=== PATIENT | female | born 1950 | race Caucasian/White ===

== ENCOUNTER 2017-03-20 11:24 | Emergency (ER) | payer OTHER ==
[~2017-03-20] VITALS: Ht 170.2 cm; Wt 60.8 kg
[2017-03-20] MEDS ORDERED: PROPRANOLOL 1010 MG PO (11:44)
[2017-03-20] MEDS ORDERED: LOVASTATIN 20 M20 MG PO (11:45)
[2017-03-20] MEDS ORDERED: PRINIVIL20 MG PO (11:45)
[2017-03-20] MEDS ORDERED: HYDROCODONE-AP1 EAC6 PO (13:12)
[2017-03-20] MEDS ORDERED: KEFLEX500 M1 PO (13:21)
[2017-03-20 13:32] VITALS: BP 137/70
== END 2017-03-20 13:33 | disposition home or self-care (01) ==
LOC: M.ERS 11:24
DX: S42.291A Other displaced fracture of upper end of right humerus, initial encounter for closed fracture (principal); L03.114 Cellulitis of left upper limb; I10 Essential (primary) hypertension; G35 Multiple sclerosis; W01.0XXA Fall on same level from slipping, tripping and stumbling without subsequent striking against object, initial encounter; Y93.89 Activity, other specified; Y92.89 Other specified places as the place of occurrence of the external cause; Y99.8 Other external cause status

== ENCOUNTER 2018-03-12 13:33 | Emergency (ER) | payer OTHER, MEDICAID ==
[~2018-03-12] VITALS: Ht 170.2 cm; Wt 54.4 kg
[~2018-03-12 13:33] MED LIST: HYDROCODONE-AP1 EAC6 PO; KEFLEX500 M1 PO; LOVASTATIN 20 M20 MG PO; PRINIVIL20 MG PO; PROPRANOLOL 1010 MG PO
[2018-03-12] MEDS ORDERED: NORCO 5-325 TA1 EACH PO (17:17)
[2018-03-12 17:38] VITALS: BP 153/69
== END 2018-03-12 17:40 | disposition home or self-care (01) ==
LOC: M.ERS 13:33
DX: S52.592A Other fractures of lower end of left radius, initial encounter for closed fracture (principal); S52.615A Nondisplaced fracture of left ulna styloid process, initial encounter for closed fracture; I10 Essential (primary) hypertension; G35 Multiple sclerosis; W01.0XXA Fall on same level from slipping, tripping and stumbling without subsequent striking against object, initial encounter; Y93.89 Activity, other specified; Y92.89 Other specified places as the place of occurrence of the external cause; Y99.8 Other external cause status